=== PATIENT | female | born 1970 | race Caucasian/White ===

== ENCOUNTER → 2020-10-13 | Outpatient (CLI) | payer SELFPAY ==
--- NOTE | 2020-10-13 10:04 | Diagnostic Imaging Report ---
Indication: Atherosclerosis, family history of cardiac disease, mixed hyperlipidemia. Noncontrast limited chest CT performed for the purpose of calcium scoring. There is calcified atherosclerotic plaque isolated to the proximal LAD. This correlates with a calcium score of 31. The aorta is normal in caliber without calcified plaque. No pericardial effusion. No central lung mass or perihilar consolidating infiltrate. Impression: Atherosclerotic calcified plaque isolated to the proximal LAD with a score 31. This is at the 90th percentile for patients of this age and reflects coronary age of 72. Dictated by: Dictated on workstation # [id number]
== END ==
LOC: RAD FS 08:32
PROVIDERS: ATTEND Nurse Practitioner Family
DX: E78.2 Mixed hyperlipidemia (principal); I25.10 Atherosclerotic heart disease of native coronary artery without angina pectoris; Z82.49 Family history of ischemic heart disease and other diseases of the circulatory system
CPT/HCPCS: 75571